=== PATIENT | female | born 1960 | race African-American/Black ===

== ENCOUNTER 2016-12-14 14:12 | Emergency (ER) | payer OTHER ==
[~2016-12-14] VITALS: Ht 165.1 cm; Wt 72.6 kg
[2016-12-14] MEDS ORDERED: SODIUM CHLORIDE 0.9% 1,000 ML IV ONE ×2 (14:49→17:45)
[2016-12-14] MEDS ORDERED: ONDANSETRON HCL 4 MG/2 ML VIAL IV ONE (15:00)
[2016-12-14] MEDS ORDERED: DIAZEPAM 5 MG/ML 2ML SYRG IV ONE (15:00)
[2016-12-14 15:02] LABS: Basophils # (auto) 0 uL; Basophils % (auto) 0.4 % (0.0-2.0); CONDITION Y; Eosinophils # (auto) 0 uL; Eosinophils % (auto) 0.6 % (0.0-7.0); Hematocrit 38.1 % (36.0-46.0); Hemoglobin 12.9 g/dL (12.2-16.2); Lymphocytes # (auto) 1.2 uL; Mean Corpuscular Hemoglobin 31.3 pg (28.0-32.0); Mean Corpuscular Hgb Conc. 33.8 g/dL (32.0-36.0); Mean Corpuscular Volume 92.6 fL (80.0-100.0); Mean Platelet Volume 7.8 fL (7.4-10.4); Monocytes # (auto) 0.3 uL; Monocytes % (auto) 3.9 % (0.0-12.0); Neutrophils % (auto) 79.1 % (37.0-80.0); Platelet Count (auto) 296 10^3/uL (140-450); Red Cell Distribution Width 13.7 % (11.6-16.0); White Blood Cell 7.6 10^3/uL (4.4-10.8)
[2016-12-14 15:12] LABS: Albumin 3.6 g/dL (3.4-5.0); Alkaline Phosphatase 62 U/L (45-117); Anion Gap 8 (5-15); Aspartate Aminotransferase 16 U/L (15-37); BUN/Creatinine Ratio 15.1; Bilirubin, Total 0.4 mg/dL (0.2-1.0); Blood Urea Nitrogen 13 mg/dL (7-18); Calcium 8.6 mg/dL (8.5-10.1); Carbon Dioxide 26 mmol/L (21-32); Chloride 107 mmol/L (98-107); GFR African American 88 mL/min; GFR Non-African American 73 mL/min; Glucose 114 mg/dL (74-106); Potassium 3.8 mmol/L (3.5-5.1); Sodium 141 mmol/L (136-145)
[2016-12-14] MEDS ORDERED: LORazepam 2MG/ML-1ML VIAL IV ONE ×2 (15:30)
[2016-12-14] MEDS ORDERED: MECLIZINE HCL 25 MG TAB PO ONE (17:45)
[2016-12-14 18:19] VITALS: BP 132/86
== END 2016-12-14 19:07 | disposition home or self-care (01) ==
LOC: ER 14:18 → EDSEX 14:18 → ER 19:07
DX: R42 Dizziness and giddiness (principal); H83.09 Labyrinthitis, unspecified ear
CPT/HCPCS: 36415; 70450; 71010; 80053; 84484; 85025; 93005; 96361; 96374; 96375; 99285; J2060; J2405; J7030; J8597

== ENCOUNTER 2018-01-31 17:12 | Emergency (ER) | payer OTHER ==
[~2018-01-31] VITALS: Ht 165.1 cm; Wt 72.1 kg
[2018-01-31 17:20] VITALS: BP 99/67
== END 2018-01-31 22:16 | disposition left against medical advice (07) ==
LOC: EDBD 17:12 → ER 17:12
DX: R55 Syncope and collapse (principal); Z53.21 Procedure and treatment not carried out due to patient leaving prior to being seen by health care provider